=== PATIENT | female | born 1960 | race Caucasian/White ===

== ENCOUNTER 2019-02-20 09:03 | Outpatient (CLI) | payer OTHER | END 2019-02-20 23:59 | disposition home or self-care (01) | LOC: CFH 09:03 | PROVIDERS: ATTEND Physical Medicine & Rehabilitation Pain Medicine | DX: M47.814 Spondylosis without myelopathy or radiculopathy, thoracic region (principal); N28.1 Cyst of kidney, acquired | CPT/HCPCS: 72146 ==

== ENCOUNTER 2019-04-04 09:52 | Outpatient (CLI) | payer OTHER | END 2019-04-04 23:59 | disposition home or self-care (01) | LOC: CFH 09:52 | PROVIDERS: ATTEND Nurse Practitioner Family | DX: M85.89 Other specified disorders of bone density and structure, multiple sites (principal); Z78.0 Asymptomatic menopausal state | CPT/HCPCS: 77080 ==